=== PATIENT | male | born 1950 | race Caucasian/White ===

== ENCOUNTER 2023-09-01 23:35 | Inpatient (IN) ==
[2023-09-02] MEDS ORDERED: SODIUM CHLORIDE 1 GM TABLET PO ONE (01:34)
[2023-09-02] MEDS: 0.9 % SODIUM CHLORIDE 500 ML IV SCH ×4 (02:05→20:45)
[2023-09-02 06:46] LABS: Basophils # (Auto) 0.03 K/mcL (0.00-0.30); Basophils % (Auto) 0.5 % (0.0-2.0); Eosinophils # (Auto) 0.09 K/mcL (0.00-0.70); Eosinophils % (Auto) 1.5 % (0.0-7.0); Hematocrit 31.7 % (40.1-51.0); Hemoglobin 10.8 g/dL (13.7-17.5); Lymphocytes # (Auto) 0.72 K/mcL (1.50-4.80); Lymphocytes % (Auto) 12.3 % (15.5-49.0); Mean Cell Volume 80.5 fL (80.0-100.0); Mean Corpuscular HGB Conc 34.1 g/dL (31.0-36.0); Mean Platelet Volume 9.4 fL (8.8-12.5); Monocytes # (Auto) 0.77 K/mcL (0.10-0.90); Monocytes % (Auto) 13.1 % (1.0-12.0); Neutrophils % (Auto) 72.1 % (38.0-78.0); Platelet Count 184 K/mcL (140-440); RBC 3.94 M/mcL (4.63-6.08); Red Cell Distribution Width 17.6 % (11.5-14.5); WBC 5.9 K/mcL (4.5-11.0)
[2023-09-02 07:06] LABS: ALT/SGPT 26 U/L (<40); AST/SGOT 29 U/L (<40); Albumin 3.6 gm/dL (3.2-5.2); Albumin/Globulin Ratio 1.5 (1.0-2.3); Alkaline Phosphatase 63 U/L (39-117); Bilirubin,Direct < 0.2 mg/dL (0-0.3); Bilirubin,Total 0.4 mg/dL (0.1-1.0); Blood Urea Nitrogen 6 mg/dL (8-23); Calcium 8.6 mg/dL (8.6-10.4); Carbon Dioxide 21 mmol/L (22-30); Chloride 88 mmol/L (96-108); Globulin 2.4 gm/dL (2.2-3.7); Glomerular Filtration Rate 88; Glucose 82 mg/dL (70-105); Lactate Dehydrogenase 139 U/L (135-225); Phosphorous 3.8 mg/dL (2.5-4.5); Triglycerides 22 mg/dL (<150); Uric Acid 5.4 mg/dL (2.5-8.0)
[2023-09-02] MEDS ORDERED: IPRATROPIUM/ALBUTEROL 3 ML AMPUL.NEB NEB PRN (08:40)
[2023-09-02] MEDS ORDERED: POTASSIUM CHLORIDE 40 MEQ in DEXTROSE 5% IN WATER 500 ML IV PRN (08:40)
[2023-09-02] MEDS ORDERED: TAMSULOSIN 0.4 MG CAPSULE PO ONE (08:40)
[2023-09-02] MEDS ORDERED: POTASSIUM CHLORIDE 20 MEQ TABLET PO PRN ×2 (08:40)
[2023-09-02] MEDS ORDERED: ACETAMINOPHEN 325 MG TABLET PO PRN (08:40)
[2023-09-02] MEDS ORDERED: MAGNESIUM SULFATE 2 GM/50 ML BAG IV PRN (08:40)
[2023-09-02] MEDS ORDERED: ONDANSETRON 4 MG/2 ML VIAL IV PRN (08:40)
[2023-09-02] MEDS ORDERED: MELATONIN 3 MG TABLET PO PRN (08:51)
[2023-09-02] MEDS: LOSARTAN 25 MG TABLET PO SCH (09:15)
[2023-09-02] MEDS: SODIUM CHLORIDE 1 GM TABLET PO SCH ×3 (09:15→20:44)
[2023-09-02] MEDS: OMEPRAZOLE 20 MG CAPSULE PO SCH (09:15)
[2023-09-02] MEDS ORDERED: DIAZEPAM 10 MG/2 ML SYRINGE IV PRN (09:17)
[2023-09-02] MEDS ORDERED: chlordiazePOXIDE 25 MG CAPSULE PO PRN (09:17)
[2023-09-02] MEDS: THIAMINE 100 MG TABLET PO SCH (09:48)
[2023-09-02] MEDS: FOLIC ACID 1 MG TABLET PO SCH (09:48)
[2023-09-02] MEDS: 0.9 % SODIUM CHLORIDE 10 ML SYRINGE IV SCH ×2 (14:23→20:44)
[2023-09-02] MEDS ORDERED: TAMSULOSIN 0.4 MG CAPSULE PO SCH (21:00)
[2023-09-03] MEDS: 0.9 % SODIUM CHLORIDE 500 ML IV SCH (05:07)
[2023-09-03] MEDS: 0.9 % SODIUM CHLORIDE 10 ML SYRINGE IV SCH (05:28)
[2023-09-03 07:05] LABS: Basophils # (Auto) 0.02 K/mcL (0.00-0.30); Basophils % (Auto) 0.4 % (0.0-2.0); Eosinophils # (Auto) 0.08 K/mcL (0.00-0.70); Eosinophils % (Auto) 1.8 % (0.0-7.0); Hematocrit 30.2 % (40.1-51.0); Hemoglobin 10.1 g/dL (13.7-17.5); Lymphocytes # (Auto) 0.57 K/mcL (1.50-4.80); Lymphocytes % (Auto) 12.5 % (15.5-49.0); Mean Cell Volume 83.2 fL (80.0-100.0); Mean Corpuscular HGB Conc 33.4 g/dL (31.0-36.0); Mean Platelet Volume 9.8 fL (8.8-12.5); Monocytes # (Auto) 0.56 K/mcL (0.10-0.90); Monocytes % (Auto) 12.3 % (1.0-12.0); Neutrophils % (Auto) 72.6 % (38.0-78.0); Platelet Count 171 K/mcL (140-440); RBC 3.63 M/mcL (4.63-6.08); Red Cell Distribution Width 18.4 % (11.5-14.5); WBC 4.6 K/mcL (4.5-11.0)
[2023-09-03 07:27] LABS: ALT/SGPT 22 U/L (<40); AST/SGOT 23 U/L (<40); Albumin 3.3 gm/dL (3.2-5.2); Albumin/Globulin Ratio 1.7 (1.0-2.3); Alkaline Phosphatase 57 U/L (39-117); Bilirubin,Direct < 0.2 mg/dL (0-0.3); Bilirubin,Total 0.5 mg/dL (0.1-1.0); Blood Urea Nitrogen 12 mg/dL (8-23); Calcium 8.4 mg/dL (8.6-10.4); Carbon Dioxide 22 mmol/L (22-30); Chloride 92 mmol/L (96-108); Globulin 1.9 gm/dL (2.2-3.7); Glomerular Filtration Rate 93; Glucose 102 mg/dL (70-105); Lactate Dehydrogenase 128 U/L (135-225); Phosphorous 3.3 mg/dL (2.5-4.5); Triglycerides 34 mg/dL (<150); Uric Acid 5.5 mg/dL (2.5-8.0)
[2023-09-03] MEDS ORDERED: MULTIVIT,THER IRON,CA,FA & MIN 1 TABLET PO SCH (09:00)
[2023-09-03] MEDS: THIAMINE 100 MG TABLET PO SCH (09:01)
[2023-09-03] MEDS: LOSARTAN 25 MG TABLET PO SCH (09:01)
[2023-09-03] MEDS: OMEPRAZOLE 20 MG CAPSULE PO SCH (09:02)
[2023-09-03] MEDS: FOLIC ACID 1 MG TABLET PO SCH (09:02)
[2023-09-03] MEDS: SODIUM CHLORIDE 1 GM TABLET PO SCH (09:02)
[2023-09-03] MEDS ORDERED: PNEUMOCOCCAL 23-VAL P-SAC VAC 0.5 ML SYRINGE IM ONE (11:30)
[2023-09-03] MEDS ORDERED: FLUZONE HD QS2023-24/PF 240 MCG/0.7 ML SYRINGE IM ONE (11:30)
== END 2023-09-03 12:07 | disposition home or self-care (01) | DRG 641 ==
LOC: ED 23:35 → MEDSUR 09-02 00:46
PROVIDERS: ADMIT Internal Medicine; ATTEND Internal Medicine

== ENCOUNTER 2023-10-07 23:31 | Inpatient (IN) ==
[2023-10-07] MEDS ORDERED: IOPAMIDOL 100 ML BOTTLE IV ONE (23:32)
[2023-10-07] MEDS ORDERED: LORazepam 2 MG/ML VIAL IV ONE (23:53)
[2023-10-07] MEDS ORDERED: 0.9 % SODIUM CHLORIDE 1,000 ML IV ONE (23:57)
[2023-10-08 00:20] LABS: POC Calcium, Ionized 1.03 (1.16-1.32); POC Potassium 4.1 (3.3-5.1)
[2023-10-08 01:01] LABS: Hematocrit 34.3 % (40.1-51.0); Hemoglobin 11.4 g/dL (13.7-17.5); Mean Cell Volume 83.5 fL (80.0-100.0); Mean Corpuscular HGB Conc 33.2 g/dL (31.0-36.0); Mean Platelet Volume 9.6 fL (8.8-12.5); Platelet Count 239 K/mcL (140-440); RBC 4.11 M/mcL (4.63-6.08); Red Cell Distribution Width 17.7 % (11.5-14.5); WBC 6.8 K/mcL (4.5-11.0)
[2023-10-08 01:24] LABS: ALT/SGPT 23 U/L (<40); AST/SGOT 28 U/L (<40); Albumin 3.5 gm/dL (3.2-5.2); Albumin/Globulin Ratio 1.4 (1.0-2.3); Alkaline Phosphatase 74 U/L (39-117); Bilirubin,Total 0.3 mg/dL (0.1-1.0); Blood Urea Nitrogen 10 mg/dL (8-23); Calcium 8.3 mg/dL (8.6-10.4); Carbon Dioxide 20 mmol/L (22-30); Chloride 85 mmol/L (96-108); Globulin 2.5 gm/dL (2.2-3.7); Glomerular Filtration Rate 93; Glucose 91 mg/dL (70-105)
[2023-10-08 01:33] LABS: Alcohol,Blood 0.247 gm/dL (<0.010)
[2023-10-08 02:01] LABS: Band Neutrophils % 2 % (0-10); Eosinophils % (Manual) 4 % (0-7); Lymphocytes % 19 % (15-49); Monocytes % (Manual) 11 % (1-12); Nucleated Red Blood Cells 1 % (0-0); Platelet Estimate NORMAL (Normal); RBC Morphology NORMAL (Normal); Segmented Neutrophils % 64 % (38-78)
[2023-10-08] MEDS ORDERED: POTASSIUM CHLORIDE 40 MEQ in DEXTROSE 5% IN WATER 500 ML IV PRN (07:51)
[2023-10-08] MEDS ORDERED: POTASSIUM CHLORIDE 20 MEQ TABLET PO PRN ×2 (07:51)
[2023-10-08] MEDS ORDERED: SENNOSIDES 1 TABLET PO PRN (07:51)
[2023-10-08] MEDS ORDERED: ONDANSETRON 4 MG/2 ML VIAL IV PRN (07:51)
[2023-10-08] MEDS ORDERED: POLYETHYLENE GLYCOL 3350 17 GM PACKET PO PRN (07:51)
[2023-10-08] MEDS ORDERED: MAGNESIUM SULFATE 2 GM/50 ML BAG IV PRN (07:51)
[2023-10-08] MEDS ORDERED: IPRATROPIUM/ALBUTEROL 3 ML AMPUL.NEB NEB PRN (07:52)
[2023-10-08] MEDS ORDERED: ACETAMINOPHEN 325 MG TABLET PO PRN (07:52)
[2023-10-08] MEDS ORDERED: DEXTROSE 50% 50 ML VIAL IV PRN (07:52)
[2023-10-08] MEDS ORDERED: hydrALAZINE 20 MG/ML VIAL IV PRN (07:52)
[2023-10-08] MEDS ORDERED: DEXTROSE 31 GM ORAL.SUSP PO PRN (07:52)
[2023-10-08] MEDS: TAMSULOSIN 0.4 MG CAPSULE PO SCH (08:40)
[2023-10-08] MEDS: ENOXAPARIN 40 MG/0.4 ML SYRINGE SQ SCH (08:40)
[2023-10-08] MEDS: OMEPRAZOLE 20 MG CAPSULE PO SCH (08:40)
[2023-10-08] MEDS: LOSARTAN 25 MG TABLET PO SCH (09:05)
[2023-10-08 09:19] LABS: ALT/SGPT 24 U/L (<40); AST/SGOT 30 U/L (<40); Albumin 3.7 gm/dL (3.2-5.2); Albumin/Globulin Ratio 1.4 (1.0-2.3); Alkaline Phosphatase 74 U/L (39-117); Bilirubin,Direct < 0.2 mg/dL (0-0.3); Bilirubin,Total 0.5 mg/dL (0.1-1.0); Blood Urea Nitrogen 9 mg/dL (8-23); Carbon Dioxide 21 mmol/L (22-30); Chloride 92 mmol/L (96-108); Globulin 2.7 gm/dL (2.2-3.7); Glomerular Filtration Rate 99; Glucose 88 mg/dL (70-105); Lactate Dehydrogenase 205 U/L (135-225); Triglycerides 33 mg/dL (<150); Uric Acid 5.5 mg/dL (2.5-8.0)
[2023-10-08 09:56] LABS: Prothrombin Time 13.5 sec (11.9-14.5)
[2023-10-08] MEDS: INSULIN LISPRO 1 UNIT/0.01 ML UNIT SQ SCH ×3 (11:35→20:39)
[2023-10-08] MEDS: MELATONIN 3 MG TABLET PO PRN (20:40)
[2023-10-09 06:32] LABS: Basophils # (Auto) 0.03 K/mcL (0.00-0.30); Basophils % (Auto) 0.3 % (0.0-2.0); Eosinophils # (Auto) 0.07 K/mcL (0.00-0.70); Eosinophils % (Auto) 0.8 % (0.0-7.0); Hematocrit 37.1 % (40.1-51.0); Hemoglobin 12.1 g/dL (13.7-17.5); Lymphocytes # (Auto) 0.64 K/mcL (1.50-4.80); Lymphocytes % (Auto) 7.3 % (15.5-49.0); Mean Cell Volume 85.5 fL (80.0-100.0); Mean Corpuscular HGB Conc 32.6 g/dL (31.0-36.0); Mean Platelet Volume 9.6 fL (8.8-12.5); Monocytes # (Auto) 0.84 K/mcL (0.10-0.90); Monocytes % (Auto) 9.6 % (1.0-12.0); Neutrophils % (Auto) 81.8 % (38.0-78.0); Platelet Count 248 K/mcL (140-440); RBC 4.34 M/mcL (4.63-6.08); Red Cell Distribution Width 18.3 % (11.5-14.5); WBC 8.7 K/mcL (4.5-11.0)
[2023-10-09 06:52] LABS: ALT/SGPT 23 U/L (<40); AST/SGOT 29 U/L (<40); Albumin 3.9 gm/dL (3.2-5.2); Albumin/Globulin Ratio 1.4 (1.0-2.3); Alkaline Phosphatase 83 U/L (39-117); Bilirubin,Direct 0.4 mg/dL (<0.3); Blood Urea Nitrogen 15 mg/dL (8-23); Calcium 9.5 mg/dL (8.6-10.4); Carbon Dioxide 20 mmol/L (22-30); Chloride 93 mmol/L (96-108); Globulin 2.7 gm/dL (2.2-3.7); Glomerular Filtration Rate 93; Glucose 109 mg/dL (70-105); Lactate Dehydrogenase 211 U/L (135-225); Phosphorous 3.8 mg/dL (2.5-4.5); Triglycerides 49 mg/dL (<150); Uric Acid 5.3 mg/dL (2.5-8.0)
[2023-10-09] MEDS: OMEPRAZOLE 20 MG CAPSULE PO SCH (07:32)
[2023-10-09] MEDS: INSULIN LISPRO 1 UNIT/0.01 ML UNIT SQ SCH ×4 (07:37→20:52)
[2023-10-09] MEDS: TAMSULOSIN 0.4 MG CAPSULE PO SCH (08:58)
[2023-10-09] MEDS: SODIUM CHLORIDE 1 GM TABLET PO SCH ×3 (08:58→20:48)
[2023-10-09] MEDS: ENOXAPARIN 40 MG/0.4 ML SYRINGE SQ SCH (08:58)
[2023-10-09] MEDS: LOSARTAN 25 MG TABLET PO SCH (08:58)
[2023-10-09] MEDS ORDERED: THIAMINE 100 MG in 0.9 % SODIUM CHLORIDE 50 ML IV ONE (09:52)
[2023-10-09] MEDS ORDERED: LORazepam 2 MG/ML VIAL IV PRN (09:52)
[2023-10-09] MEDS ORDERED: chlordiazePOXIDE 25 MG CAPSULE PO PRN (09:52)
[2023-10-09] MEDS: FOLIC ACID 1 MG TABLET PO SCH (10:07)
[2023-10-09] MEDS: MULTIVIT,THER IRON,CA,FA & MIN 1 TABLET PO SCH (10:07)
[2023-10-09] MEDS: MELATONIN 3 MG TABLET PO PRN (20:48)
[2023-10-10] MEDS: INSULIN LISPRO 1 UNIT/0.01 ML UNIT SQ SCH ×2 (07:45→11:16)
[2023-10-10] MEDS: OMEPRAZOLE 20 MG CAPSULE PO SCH (07:47)
[2023-10-10 08:22] LABS: Blood Urea Nitrogen 13 mg/dL (8-23); Calcium 8.8 mg/dL (8.6-10.4); Carbon Dioxide 22 mmol/L (22-30); Chloride 95 mmol/L (96-108); Glomerular Filtration Rate 93; Glucose 115 mg/dL (70-105)
[2023-10-10] MEDS: LOSARTAN 25 MG TABLET PO SCH (08:50)
[2023-10-10] MEDS: TAMSULOSIN 0.4 MG CAPSULE PO SCH (08:50)
[2023-10-10] MEDS: ENOXAPARIN 40 MG/0.4 ML SYRINGE SQ SCH (08:50)
[2023-10-10] MEDS: MULTIVIT,THER IRON,CA,FA & MIN 1 TABLET PO SCH (08:50)
[2023-10-10] MEDS: FOLIC ACID 1 MG TABLET PO SCH (08:52)
[2023-10-10] MEDS: SODIUM CHLORIDE 1 GM TABLET PO SCH (08:52)
[2023-10-10] MEDS ORDERED: THIAMINE 100 MG in 0.9 % SODIUM CHLORIDE 50 ML IV SCH (09:00)
[2023-10-11] MEDS ORDERED: metFORMIN 500 MG TAB.XL.24H PO SCH (08:00)
[2023-10-11] MEDS ORDERED: SUPER BETA PROSTATE PO SCH (09:00)
[2023-10-11] MEDS ORDERED: MILK THISTLE PO SCH (09:00)
== END 2023-10-10 12:55 | disposition home or self-care (01) ==
LOC: ED 23:31 → ICU 10-08 03:30
PROVIDERS: ADMIT Internal Medicine; ATTEND Internal Medicine

== ENCOUNTER 2024-09-06 08:59 | Inpatient (IN) ==
[2024-09-06] MEDS ORDERED: IOPAMIDOL 100 ML BOTTLE IV ONE (09:00)
[2024-09-06] MEDS: ACETAMINOPHEN 1,000 MG/100 ML BAG IV ONE (09:12)
[2024-09-06] MEDS: 0.9 % SODIUM CHLORIDE 1,000 ML IV ONE ×3 (09:13→16:11)
[2024-09-06 09:30] LABS: Basophils # (Auto) 0.01 K/mcL (0.00-0.30); Basophils % (Auto) 0.1 % (0.0-2.0); Eosinophils # (Auto) 0 K/mcL (0.00-0.70); Eosinophils % (Auto) 0 % (0.0-7.0); Hematocrit 44.2 % (40.1-51.0); Hemoglobin 15.2 g/dL (13.7-17.5); Lymphocytes # (Auto) 0.47 K/mcL (1.50-4.80); Lymphocytes % (Auto) 6.2 % (15.5-49.0); Mean Cell Volume 97.6 fL (80.0-100.0); Mean Corpuscular HGB Conc 34.4 g/dL (31.0-36.0); Mean Platelet Volume 9.5 fL (8.8-12.5); Monocytes # (Auto) 0.25 K/mcL (0.10-0.90); Monocytes % (Auto) 3.3 % (1.0-12.0); Neutrophils % (Auto) 90.1 % (38.0-78.0); Platelet Count 171 K/mcL (140-440); RBC 4.53 M/mcL (4.63-6.08); Red Cell Distribution Width 16.2 % (11.5-14.5); WBC 7.6 K/mcL (4.5-11.0)
[2024-09-06 09:39] LABS: Prothrombin Time 13.7 sec (11.9-14.5)
[2024-09-06 10:00] LABS: ALT/SGPT 30 U/L (<40); AST/SGOT 37 U/L (<40); Albumin 3.5 gm/dL (3.2-5.2); Albumin/Globulin Ratio 1.5 (1.0-2.3); Alkaline Phosphatase 57 U/L (39-117); Bilirubin,Total 0.6 mg/dL (0.1-1.0); Blood Urea Nitrogen 20 mg/dL (8-23); Calcium 7.9 mg/dL (8.6-10.4); Carbon Dioxide 13 mmol/L (22-30); Chloride 95 mmol/L (96-108); Globulin 2.4 gm/dL (2.2-3.7); Glomerular Filtration Rate 73; Glucose 237 mg/dL (70-105); Potassium 4.3 mmol/L (3.3-5.1); Sodium 134 mmol/L (133-145)
[2024-09-06] MEDS: PIPERACILLIN SODIUM/TAZOBACTAM 3.375 GM in DEXTROSE 5% IN WATER 50 ML IV ONE (10:35)
[2024-09-06] MEDS: VANCOMYCIN 1,500 MG in 0.9 % SODIUM CHLORIDE 500 ML IV ONE (11:34)
[2024-09-06] MEDS: VANCOMYCIN PER PHARMACY IV ONE (12:00)
[2024-09-06 12:19] LABS: Appearance,Urine Clear (Clear); Bacteria,Urine Few /hpf (0); Bilirubin,Urine Small mg/dL (Negative); Color,Urine Yellow; Glucose,Urine (UA) Negative (Negative); Ketones,Urine 15 mg/dL (Negative); Leukocyte Esterase,Urine Negative /uL (Negative); Nitrate,Urine Positive (Negative); Protein,Urine 100 mg/dL (Negative); Specific Gravity,Urine 1.015 (1.000-1.035); Urine Blood Negative ery/mcL (Negative); Urine RBC 0 /hpf (0-3); Urine Squamous Epithelial Cell 0 /hpf (0-4); Urine WBC 0 /hpf (0-4); Urobilinogen,Urine Normal
[2024-09-06 12:31] LABS: Alcohol, Blood < 10.1 mg/dL; Alcohol,Blood < 0.010 gm/dL (<0.010)
[2024-09-06 14:45] LABS: Band Neutrophils % 35 % (0-10); Lymphocytes % 4 % (15-49); Monocytes % (Manual) 3 % (1-12); Platelet Estimate NORMAL (Normal); RBC Morphology NORMAL (Normal); Segmented Neutrophils % 58 % (38-78)
[2024-09-06] MEDS ORDERED: METOCLOPRAMIDE 10 MG/2 ML VIAL IV PRN (16:13)
[2024-09-06] MEDS ORDERED: DEXTROSE 50% 50 ML VIAL IV PRN (16:13)
[2024-09-06] MEDS ORDERED: SENNOSIDES 1 TABLET PO PRN (16:13)
[2024-09-06] MEDS ORDERED: chlordiazePOXIDE 25 MG CAPSULE PO PRN (16:13)
[2024-09-06] MEDS ORDERED: DEXTROSE 31 GM ORAL.SUSP PO PRN (16:13)
[2024-09-06] MEDS ORDERED: POTASSIUM CHLORIDE 20 MEQ TABLET PO PRN ×2 (16:13)
[2024-09-06] MEDS ORDERED: MAGNESIUM SULFATE 2 GM/50 ML BAG IV PRN (16:13)
[2024-09-06] MEDS ORDERED: IPRATROPIUM/ALBUTEROL 3 ML AMPUL.NEB NEB PRN (16:13)
[2024-09-06] MEDS ORDERED: ACETAMINOPHEN 160 MG/5 ML ORAL.SOL PO PRN (16:13)
[2024-09-06] MEDS ORDERED: POLYETHYLENE GLYCOL 3350 17 GM PACKET PO PRN (16:13)
[2024-09-06] MEDS ORDERED: POTASSIUM CHLORIDE 40 MEQ in DEXTROSE 5% IN WATER 500 ML IV PRN (16:13)
[2024-09-06] MEDS ORDERED: LORazepam 2 MG/ML VIAL IV PRN (16:13)
[2024-09-06] MEDS ORDERED: ONDANSETRON 4 MG/2 ML VIAL IV PRN (16:13)
[2024-09-06] MEDS: SODIUM BICARBONATE 650 MG TABLET PO SCH (16:23)
[2024-09-06] MEDS: MAGNESIUM SULFATE 2 GM/50 ML BAG IV ONE ×2 (16:23→17:38)
[2024-09-06] MEDS ORDERED: MAGNESIUM SULFATE 2 GM/50 ML BAG IV ONE (16:30)
[2024-09-06] MEDS: INSULIN LISPRO 1 UNIT/0.01 ML UNIT SQ SCH (16:34)
[2024-09-06] MEDS: THIAMINE 100 MG in 0.9 % SODIUM CHLORIDE 50 ML IV SCH (16:51)
[2024-09-06] MEDS: PIPERACILLIN SODIUM/TAZOBACTAM 3.375 GM in DEXTROSE 5% IN WATER 100 ML IV SCH (17:42)
[2024-09-06 17:44] LABS: Estimated Average Glucose(eAG) 117 mg/dL; Hemoglobin A1C 5.7 % Hgb (4.0-6.0)
[2024-09-06] MEDS: ACETAMINOPHEN 325 MG TABLET PO PRN (19:50)
[2024-09-06] MEDS: MELATONIN 3 MG TABLET PO PRN (20:23)
[2024-09-06] MEDS: GABAPENTIN 100 MG CAPSULE PO SCH (20:23)
[2024-09-07] MEDS: 0.9 % SODIUM CHLORIDE 10 ML SYRINGE IV SCH (01:01)
[2024-09-07 06:16] LABS: Basophils # (Auto) 0.01 K/mcL (0.00-0.30); Basophils % (Auto) 0.1 % (0.0-2.0); Eosinophils # (Auto) 0.02 K/mcL (0.00-0.70); Eosinophils % (Auto) 0.2 % (0.0-7.0); Hematocrit 38.7 % (40.1-51.0); Hemoglobin 13.2 g/dL (13.7-17.5); Lymphocytes # (Auto) 0.38 K/mcL (1.50-4.80); Lymphocytes % (Auto) 4.7 % (15.5-49.0); Mean Cell Volume 98.7 fL (80.0-100.0); Mean Corpuscular HGB Conc 34.1 g/dL (31.0-36.0); Mean Platelet Volume 9.9 fL (8.8-12.5); Monocytes # (Auto) 0.35 K/mcL (0.10-0.90); Monocytes % (Auto) 4.3 % (1.0-12.0); Neutrophils % (Auto) 90.5 % (38.0-78.0); Platelet Count 140 K/mcL (140-440); RBC 3.92 M/mcL (4.63-6.08); Red Cell Distribution Width 16.7 % (11.5-14.5); WBC 8.1 K/mcL (4.5-11.0)
[2024-09-07 06:34] LABS: ALT/SGPT 27 U/L (<40); AST/SGOT 45 U/L (<40); Albumin/Globulin Ratio 1.4 (1.0-2.3); Alkaline Phosphatase 46 U/L (39-117); Bilirubin,Direct 0.3 mg/dL (<0.3); Bilirubin,Total 0.6 mg/dL (0.1-1.0); Blood Urea Nitrogen 20 mg/dL (8-23); Calcium 7.3 mg/dL (8.6-10.4); Carbon Dioxide 21 mmol/L (22-30); Chloride 102 mmol/L (96-108); Globulin 2.1 gm/dL (2.2-3.7); Glomerular Filtration Rate 92; Glucose 109 mg/dL (70-105); Lactate Dehydrogenase 208 U/L (135-225); Phosphorous 2.6 mg/dL (2.5-4.5); Potassium 3.7 mmol/L (3.3-5.1); Sodium 134 mmol/L (133-145); Triglycerides 41 mg/dL (<150); Uric Acid 4.2 mg/dL (2.5-8.0)
[2024-09-07] MEDS: OMEPRAZOLE 20 MG CAPSULE PO SCH (07:32)
[2024-09-07 08:32] LABS: Band Neutrophils % 20 % (0-10); Lymphocytes % 5 % (15-49); Monocytes % (Manual) 5 % (1-12); Platelet Estimate NORMAL (Normal); RBC Morphology NORMAL (Normal); Segmented Neutrophils % 70 % (38-78)
[2024-09-07] MEDS: TAMSULOSIN 0.4 MG CAPSULE PO SCH (09:42)
[2024-09-07] MEDS: LOSARTAN 25 MG TABLET PO SCH (09:42)
[2024-09-07] MEDS: FOLIC ACID 1 MG TABLET PO SCH (09:43)
[2024-09-07] MEDS: ENOXAPARIN 40 MG/0.4 ML SYRINGE SQ SCH (09:43)
[2024-09-07] MEDS: MULTIVIT,THER IRON,CA,FA & MIN 1 TABLET PO SCH (09:43)
[2024-09-07] MEDS: PIPERACILLIN SODIUM/TAZOBACTAM 4.5 GM in DEXTROSE 5% IN WATER 100 ML IV SCH (09:44)
[2024-09-08 06:39] LABS: ALT/SGPT 25 U/L (<40); AST/SGOT 44 U/L (<40); Albumin 2.9 gm/dL (3.2-5.2); Albumin/Globulin Ratio 1.3 (1.0-2.3); Alkaline Phosphatase 43 U/L (39-117); Bilirubin,Direct 0.3 mg/dL (<0.3); Bilirubin,Total 0.4 mg/dL (0.1-1.0); Blood Urea Nitrogen 21 mg/dL (8-23); Calcium 7.5 mg/dL (8.6-10.4); Carbon Dioxide 19 mmol/L (22-30); Chloride 103 mmol/L (96-108); Globulin 2.2 gm/dL (2.2-3.7); Glomerular Filtration Rate 92; Glucose 128 mg/dL (70-105); Lactate Dehydrogenase 192 U/L (135-225); Phosphorous 2.3 mg/dL (2.5-4.5); Potassium 3.6 mmol/L (3.3-5.1); Sodium 133 mmol/L (133-145); Triglycerides 72 mg/dL (<150); Uric Acid 3.1 mg/dL (2.5-8.0)
[2024-09-08 07:47] LABS: Hematocrit 38.3 % (40.1-51.0); Hemoglobin 12.9 g/dL (13.7-17.5); Mean Cell Volume 100.3 fL (80.0-100.0); Mean Corpuscular HGB Conc 33.7 g/dL (31.0-36.0); Mean Platelet Volume 10.3 fL (8.8-12.5); Platelet Count 132 K/mcL (140-440); RBC 3.82 M/mcL (4.63-6.08); Red Cell Distribution Width 16.6 % (11.5-14.5); WBC 6.2 K/mcL (4.5-11.0)
[2024-09-08 08:24] LABS: Anisocytosis 2+ (None Seen); Band Neutrophils % 8 % (0-10); Lymphocytes % 11 % (15-49); Monocytes % (Manual) 6 % (1-12); Platelet Estimate NORMAL (Normal); RBC Morphology ABNORMAL (Normal); Segmented Neutrophils % 75 % (38-78)
[2024-09-08] MEDS: SODIUM BICARBONATE 650 MG TABLET PO SCH (10:29)
[2024-09-08] MEDS: FLU VACC TS2024-25(65YR UP)/PF 180 MCG/0.5 ML SYRINGE IM ONE (10:41)
[2024-09-08] MEDS: cefTRIAXone 2 GM in DEXTROSE 5% IN WATER 50 ML IV SCH (14:51)
[2024-09-08] MEDS: metroNIDAZOLE 500 MG/100 ML BAG IV SCH (15:31)
[2024-09-09 06:34] LABS: ALT/SGPT 28 U/L (<40); AST/SGOT 52 U/L (<40); Albumin 3.1 gm/dL (3.2-5.2); Albumin/Globulin Ratio 1.3 (1.0-2.3); Alkaline Phosphatase 43 U/L (39-117); Bilirubin,Direct 0.2 mg/dL (<0.3); Bilirubin,Total 0.4 mg/dL (0.1-1.0); Blood Urea Nitrogen 14 mg/dL (8-23); Calcium 8.1 mg/dL (8.6-10.4); Carbon Dioxide 23 mmol/L (22-30); Chloride 99 mmol/L (96-108); Globulin 2.3 gm/dL (2.2-3.7); Glomerular Filtration Rate 98; Glucose 107 mg/dL (70-105); Lactate Dehydrogenase 206 U/L (135-225); Phosphorous 1.9 mg/dL (2.5-4.5); Sodium 134 mmol/L (133-145); Triglycerides 84 mg/dL (<150); Uric Acid 3.3 mg/dL (2.5-8.0)
[2024-09-09 07:00] VITALS: O2SAT 97
[2024-09-09] MEDS: NEUTRA PHOS 1 PACKET PO SCH (08:53)
[2024-09-09] MEDS: PHOSPHORUS 250 MG TABLET PO SCH (08:54)
[2024-09-09] MEDS: THIAMINE 100 MG/ML VIAL ONE (08:55)
[2024-09-09 12:03] VITALS: TEMP 98
== END 2024-09-09 13:11 | disposition home or self-care (01) | DRG 871 ==
LOC: ED 08:59 → ICU 16:05 → MEDSUR 09-08 11:43
PROVIDERS: ADMIT Internal Medicine; ATTEND Internal Medicine